=== PATIENT | female | born 1990 | race Caucasian/White ===

== ENCOUNTER 2021-01-26 14:44 | Outpatient (RCR) | payer BC, SELFPAY ==
[2021-01-24 11:34] LABS: Hematocrit 35.8 % (37.0-47.0); Hemoglobin 12.1 g/dL (12.0-15.0)
[2021-01-24 11:44] LABS: Glucose 1 Hour PP 50gm Dose 125 mg/dL
[2021-01-24 12:26] LABS: HIV 1/2 Ab P24 Ag Result Negative (Negative)
[2021-01-26 06:50] LABS: Rapid Plasma Reagin Non-Reactive (NonReactive)
[2021-01-26] MEDS: RHO(D) IMMUNE GLOBULIN 300 MCG/2 ML SYRINGE IM (17:11)
== END 2021-04-24 23:59 | disposition home or self-care (01) ==
LOC: ANHLAB 14:44
PROVIDERS: PCP Internal Medicine; Visit Provider Obstetrics & Gynecology
DX: Z11.4 Encounter for screening for human immunodeficiency virus [HIV] (principal); Z29.13 Encounter for prophylactic Rho(D) immune globulin; O36.0130 Maternal care for anti-D [Rh] antibodies, third trimester, not applicable or unspecified; Z3A.00 Weeks of gestation of pregnancy not specified
CPT/HCPCS: 36415; 82947; 85014; 85018; 85461; 86592; 86703; 90384; 96372; G0432; J2790

== ENCOUNTER 2021-04-11 14:18 | Outpatient (CLI) | payer BC, SELFPAY ==
[2021-04-11 15:01] VITALS: BP 127/83; PULSE 101
[2021-04-11 15:15] VITALS: BP 115/86; PULSE 106
[2021-04-11 15:18] LABS: Basophils Absolute Auto 0.1 K/mm3 (0.0-0.1); Basophils Percent Auto 0.4 % (0.2-1.2); Eosinophils Absolute Auto 0.1 K/mm3 (0-0.3); Eosinophils Percent Auto 0.7 % (0-4.4); Hematocrit 32.6 % (37.0-47.0); Immature Granulocyte Absolute 0.17 K/mm3 (0.00-0.031); Immature Granulocyte Percent A 0.9 % (0-0.5); Lymphocytes Absolute Auto 3.22 K/mm3 (0.9-3.2); Lymphocytes Percent Auto 16.7 % (18.3-44.2); Mean Corpuscular HGB Conc 33.7 g/dl (32-36); Mean Corpuscular Hemoglobin 32.5 pg (26-34); Mean Corpuscular Volume 96.4 fl (80-100); Monocytes Percent Auto 4.9 % (2.6-8.5); Neutrophils Absolute Auto 14.7 K/mm3 (1.3-6.7); Neutrophils Percent Auto 76.4 % (45.5-73.1); Platelet Count Result 427 k/mm3 (150-375); Red Blood Count 3.38 M/mm3 (4.2-5.4); Red Cell Distribution Width 13.2 % (11.5-14.5); White Blood Count 19.3 K/mm3 (4.5-10.0)
[2021-04-11 15:28] LABS: Creatinine Urine 40.9 mg/dL; Total Protein Urine Random 12 mg/dL; Ur Ttl Prot Creatinine Ratio 0.29 mg/mg (0-0.20)
[2021-04-11 15:30] VITALS: BP 119/82; PULSE 106
[2021-04-11 15:32] LABS: Add Urine Microscopic? YES; Appearance Urine Cloudy (Clear); Bacteria Urine Trace /hpf; Bilirubin Urine Negative (Negative); Blood Urine Negative (Negative); Color Urine Yellow (Yellow); Glucose Urine UA Negative (Negative); Ketones Urine Negative (Negative); Leukocyte Esterase Ur Negative LEU/UL (NEGATIVE); Nitrate Urine Negative (Negative); Protein Urine Negative (Negative); RBC Urine 0-2 /hpf (0-2); Specific Grav Ur 1.008 (1.001-1.035); Squamous Epithelial Cell Urine Few /hpf (Few); Urobilinogen Urine Negative mg/dL (<2.0); WBC Urine 0-3 /hpf (0-3)
[2021-04-11 15:34] LABS: Alanine Aminotransferase 16 U/L (4-35); Albumin Level 3.9 g/dL (3.5-5.1); Alkaline Phosphatase 136 U/L (38-126); Anion Gap 9 mmol/L (8-16); Aspartate Amino Transferase 22 U/L (14-36); Bilirubin,Total 0.3 mg/dL (0.2-1.3); Blood Urea Nitrogen 5 mg/dL (7-17); Calcium 9.3 mg/dL (8.4-10.2); Carbon Dioxide 20 mmol/L (22-30); Chloride 104 mmol/L (98-107); Estimated Glomerular Filt Rate > 60; Glucose 112 mg/dL (65-110); Potassium 3.8 mmol/L (3.4-5.0); Sodium 133 mmol/L (137-145); Uric Acid 4.2 mg/dL (2.5-7.5)
[2021-04-11 15:46] VITALS: BP 122/71; PULSE 105
--- NOTE | 2021-04-11 15:55 | PC.NURSE ---
Lizzeth Bagley CNM on unit. Lab results and BPs given. Tracing reviewed. October D/C home.
[2021-04-11 16:00] VITALS: BP 115/84; PULSE 112
== END 2021-04-11 16:04 | disposition home or self-care (01) ==
LOC: ANHOBOP 14:22 → ANHOBPP 14:25
PROVIDERS: PCP Internal Medicine; Visit Provider Advanced Practice Midwife
DX: O13.9 Gestational [pregnancy-induced] hypertension without significant proteinuria, unspecified trimester (principal); Z3A.00 Weeks of gestation of pregnancy not specified
CPT/HCPCS: 36415; 59025; 80053; 81001; 82570; 84156; 84550; 85025; 87086; 99199

== ENCOUNTER 2021-04-14 06:13 | Inpatient (IN) | payer BC, SELFPAY ==
[2021-04-14] VITALS (92 sets, daily range): BP systolic 97–152; BP diastolic 55–91; PULSE 40–129; RESP 16–18; TEMP 36.2–37.2; O2SAT 81–100; BMI 28.9
[2021-04-14 06:44] LABS: Basophils Absolute Auto 0.1 K/mm3 (0.0-0.1); Basophils Percent Auto 0.4 % (0.2-1.2); Eosinophils Absolute Auto 0.1 K/mm3 (0-0.3); Eosinophils Percent Auto 0.4 % (0-4.4); Hematocrit 33.4 % (37.0-47.0); Hemoglobin 11.3 g/dL (12.0-15.0); Immature Granulocyte Absolute 0.21 K/mm3 (0.00-0.031); Immature Granulocyte Percent A 0.8 % (0-0.5); Lymphocytes Absolute Auto 3.09 K/mm3 (0.9-3.2); Lymphocytes Percent Auto 12.4 % (18.3-44.2); Mean Corpuscular HGB Conc 33.8 g/dl (32-36); Mean Corpuscular Hemoglobin 32.1 pg (26-34); Mean Corpuscular Volume 94.9 fl (80-100); Mean Platelet Volume 9.8 fl (7.4-10.4); Monocytes Absolute Auto 1.1 K/mm3 (0.1-0.6); Monocytes Percent Auto 4.4 % (2.6-8.5); Neutrophils Absolute Auto 20.4 K/mm3 (1.3-6.7); Neutrophils Percent Auto 81.6 % (45.5-73.1); Platelet Count Result 467 k/mm3 (150-375); Red Blood Count 3.52 M/mm3 (4.2-5.4); Red Cell Distribution Width 13.4 % (11.5-14.5)
[2021-04-14] MEDS: LACTATED RINGERS 1,000 ML 125 ML IV CONT ×2 (06:45→07:20)
--- NOTE | 2021-04-14 06:51 | LDADM ---
This patient, Lana Gomez, was admitted to Labor/Delivery/Recovery 103 on 04/14/21 at 06:13. Plans for labor, pain management and were discussed with patient. Patient/family oriented to hospital policies and general routines including ID bracelet, bed and alarms, visiting hours, pain management, procedures, bathroom and other care routines, personal items, smoking policy, room service/diet and guest tray routines, security routines, and visiting hours. Patient/Family are encouraged to report perceived risks to care and to ask questions if they do not understand what they are told or what they should do. See OBIX for further documentation.
[2021-04-14] MEDS: fentaNYL CITRATE INJ (*CRX) 100 MCG/2 ML VIAL IV PUSH (07:21)
--- NOTE | 2021-04-14 07:41 | WPDANESEPP ---
Anes - Eval Pre Procedure Procedure: Labor Epidural Date/Time: 04/14/21 07:41 Surgeon: Bri Preop Diagnosis: Labor Pain Pre Op Diagnosis: Labor Patient Data Age: 31 Gender: F Height: 1.6 m Weight: 74 kg Last Vital Signs Pulse 99 04/14/21 07:41 BP 129/76 04/14/21 07:41 Pulse Ox 100 04/14/21 07:37 Allergies Allergy/AdvReac Type Severity Reaction Status Date / Time No Known Allergies Allergy Verified 03/21/21 13:34 Home Medications Medication Instructions Recorded Confirmed Type pantoprazole 40 mg PO QAM 03/21/21 03/21/21 History prenat.vits,tamiko,vqc-fmds-hhqyp 1 tablet PO DAILY 03/21/21 03/21/21 History [ #2] Laboratory Tests 04/14/21 04/14/21 04/14/21 06:37 06:37 06:38 WBC 25.0 K/mm3 H K/mm3 (4.5-10.0) RBC 3.52 M/mm3 L M/mm3 (4.2-5.4) Hgb 11.3 g/dL L g/dL (12.0-15.0) Hct 33.4 % L % (37.0-47.0) MCV 94.9 fl fl (80-100) MCH 32.1 pg pg (26-34) MCHC 33.8 g/dl g/dl (32-36) RDW 13.4 % % (11.5-14.5) Plt Count 467 k/mm3 H k/mm3 (150-375) MPV 9.8 fl fl (7.4-10.4) Immature Gran % (Auto) 0.8 % H % (0-0.5) Neut % (Auto) 81.6 % H % (45.5-73.1) Lymph % (Auto) 12.4 % L % (18.3-44.2) [place] % (Auto) 4.4 % % (2.6-8.5) Eos % (Auto) 0.4 % % (0-4.4) Baso % (Auto) 0.4 % % (0.2-1.2) Lymph # (Auto) 3.09 K/mm3 K/mm3 (0.9-3.2) [place] # (Auto) 1.1 K/mm3 H K/mm3 (0.1-0.6) Eos # (Auto) 0.1 K/mm3 K/mm3 (0-0.3) Baso # (Auto) 0.1 K/mm3 K/mm3 (0.0-0.1) Abs Immat Gran (auto) 0.21 K/mm3 H K/mm3 (0.00-0.031) Absolute Neuts (auto) 20.4 K/mm3 H K/mm3 (1.3-6.7) Absolute Nucleated RBC 0.0 K/mm3 K/mm3 (0.0-0.012) Nucleated RBC % 0.0 % % (0.0-0.2) RPR Pending Blood Type O Negative Antibody Screen Negative : gestational age (VAHID 04/18/21, ) Patient hx anesthesia problems: none Family hx anesthesia problems: none Results Review: All pre-operative results and documents have been reviewed as part of the pre-operative evaluation. [facility] Family History Family History Mother Legally blind ADHD (attention deficit hyperactivity disorder) Sibling ADHD (attention deficit hyperactivity disorder) Social History Social History Smoking status: Current every day smoker Tobacco type: e-cigarettes/vaping Substance use: current Last use: LAST TIME 1.5 MONTH AGO Spiritual care concerns: No Exam Day of Procedure 04/14/21 07:41 Patient weight: normal Heart: regular rate and rhythm Lungs: normal air movement Airway: Mallampati scale class II Neurological: alert and oriented
--- NOTE | 2021-04-14 08:26 | WPDOBADMIT ---
Obstetrics - Admit Note Admission Note: 31 y/o G1 @ 39w3d here with spontaneous rupture of membranes. VSS Comfortable with epidural Contractions regular FHR category 1 Cervix 6-7/100/-1 Anticipate record reviewed. No pertinent additions to the history and/or any subsequent changes in the physical findings that are not consistent with the expected course of the were found. Additions to the history and/or subsequent changes in the physical findings follow. None.
[2021-04-14 09:17] LABS: Amphetamine Screen Urine Negative (Negative); Barbiturate Screen Urine Negative (Negative); Benzodiazepines Screen Urine Negative (Negative); Cannabinoid Screen Urine Positive (Negative); Cocaine Screen Urine Negative (Negative); Methadone Screen Urine Negative (Negative); Opiate Screen Urine Negative (Negative); Phencyclidine Screen Urine Negative (Negative)
--- NOTE | 2021-04-14 12:20 | PM.OBPRVD ---
OB - Delivery Note Procedure Delivery date: 04/14/21 Procedure: Intrapartal events: None Induction method: none Delivery monitor: external FHT and external uterine Route of delivery: Episiotomy description: None Laceration Description: Periurethral and Perineal - 2nd Degree Delivery repair: vicryl Anesthesia type: Epidural Narrative: Mother and baby in stable condition. Cord segment handed off to staff for cord dahlia collection. Baby Date of : 04/14/21 Time of : 11:23 Weeks of gestation at delivery: 39 Infant gender: Female presentation: vertex position: Right Occiput Anterior cord vessel description: Delayed Cord Clamping
[2021-04-14] MEDS: LANOLIN (LANSINOH) 7.5 GM CREAM 1 APPLIC TOPICAL ×2 (14:28→18:55)
[2021-04-14] MEDS: WITCH HAZEL 40 PADS 1 PAD TOPICAL (14:28)
[2021-04-14] MEDS: BENZOCAINE 20% AER SPR (*SP) 56 GM CAN 1 SPRAY TOPICAL (14:28)
--- NOTE | 2021-04-14 15:00 | PC.NURSE ---
Mother called out for assist with feeding, reporting eagerly fed for first feeding without issue. Reviewed feeding cues, frequencies, duration of feedings, feeding elimination flow sheet, and signs of adequate intake. Demonstrated stimulation techniques to wake for feeding. Assisted with infant to breast. Reviewed positioning/alignment in cross cradle, holding breast in ?U? hold and guided asymmetrical latch on. Reviewed rational for each. able to latch correctly within a few attempts. Infant nursed eagerly with steady draws and occasional/frequent swallowing noted, some pausing noted. Reviewed signs of a correct latch, effective nursing and suck swallow ratio. Suggested mother stimulate while feeding to increase stimulate, increase intake and to assist with maintaining deep latch. would slip to shallow latch causing tenderness. Demonstrated how to adjust latch more deeply while feeding if needed. Mother reports she can feel the difference in latch with less tenderness. Nipple care reviewed of lanolin after feedings, warm compresses as needed. Instructed mother to call out for RN assistance if she is unable to latch for feeding or she has discomfort with nursing. Instructed feeding should be initiated three hours from start of last feeding or if feeding cues are noted before. Mother voiced understanding of information shared.
[2021-04-14] MEDS: IBUPROFEN 600 MG TABLET PO (18:53)
[2021-04-14] MEDS: DOCUSATE SODIUM 100 MG CAPSULE PO (18:53)
--- NOTE | 2021-04-14 18:55 | PC.NURSE ---
1408 Pt admitted to room 281 per wheelchair from labor and delivery after vaginal delivery of viable female today at 1123 with Salome GORDON for Dr. Gregory. Mother is a and is choosing to breast feed infant. /FOB present; couple oriented to room, staffing and procedures. Admission folder reviewed including Mother-Baby Guide. Pt's VSS and assessment WNL.
[2021-04-15 00:01] VITALS: BP 92/58; PULSE 94; RESP 16; TEMP 36.8; O2SAT 98
[2021-04-15 05:15] VITALS: BP 104/62; PULSE 78; RESP 14; TEMP 36.7; O2SAT 98
[2021-04-15] MEDS: IBUPROFEN 600 MG TABLET PO ×3 (05:19→17:07)
[2021-04-15 06:24] LABS: Hematocrit 26.4 % (37.0-47.0); Hemoglobin 8.8 g/dL (12.0-15.0)
[2021-04-15 07:15] VITALS: BP 111/66; PULSE 87; RESP 18; TEMP 36.4; O2SAT 98
--- NOTE | 2021-04-15 07:49 | PM.OBPNVD ---
OB - PN: Subj Subjective Date/time seen: 04/15/21 07:49 Patient comments: no complaints baby status: doing well [place] feeding status: exclusively breast feeding OB - PN: Obj Data Labs CBC & Chem 7: 04/15/21 05:23 Labs: Laboratory Results - last 24 hr 04/14/21 04/15/21 04/15/21 07:15 05:23 05:23 Hgb 8.8 L Hct 26.4 L Urine Opiates Screen Negative Urine Methadone Screen Negative Ur Barbiturates Screen Negative Ur Phencyclidine Scrn Negative Ur Amphetamine Screen Negative U Benzodiazepines Scrn Negative Urine Cocaine Screen Negative U Cannabinoids Screen Positive A Blood Type O Negative Antibody Screen Negative Baby's Blood Type O pos Baby's NITIN Negative Doses of RhIg Required 1 OB - PN A/P Plan day: 1 Plan: routine care Time Spent With Patient Time: Total time spent is greater than 50% in coordination of care (as documented) at patient's floor/unit and/or counseling patient: Review of Systems Review of Systems: All systems reviewed & are unremarkable except as noted in HPI and below Exam Const: General: cooperative Nutritional Appearance: average body habitus
[2021-04-15] MEDS: POLYSACCHARIDE IRON COMPLEX 150 MG CAPSULE PO ×2 (11:18→17:07)
[2021-04-15] MEDS: DOCUSATE SODIUM 100 MG CAPSULE PO ×2 (11:19→17:07)
--- NOTE | 2021-04-15 11:26 | PCCCNOTE ---
Addendum entered by MICHAEL Mota 04/15/21 13:13: 1310: Recvd email from [facility] that states: The information you provided did not meet one of the criteria for an investigation (eligible victim, eligible perpetrator, eligible event, or jurisdiction). The information as been documented and will be kept on file. Should you learn of further information or have additional concerns, please feel free to contact us. Original Note: Met with pt. due to THC+ UDS. Pt. reports using THC during to help her sleep. Baby's meconium is pending. GELA Seals reports likely discharge tomorrow. FOB Alen at bedside. Pt., Alen, and will be living at home in [place]. Pt. reports having a large support system and states has all necessary baby supplies for their first baby. Pt. states they are both employed and over qualified for WIC/Food [place]. Pt. denies prior DCFS involvement. resources provided. [facility] Report #[id number]. GELA Seals aware.
--- NOTE | 2021-04-15 12:30 | PC.NURSE ---
Upon entering mother has to breast. Mother reports tenderness with feeding and freq feeding. Infant has bottom lip rolled in while nursing, demonstrated how to roll out while feeding. Mother reports less tenderness once rolled out. Reviewed positioning/alignment in cross cradle, holding breast in ?U? hold and guided asymmetrical latch on. Reviewed rational for each. nursed eagerly with steady draws and occasional swallowing noted, some pausing noted. Reviewed signs of a correct latch, effective nursing and suck swallow ratio. Suggested mother stimulate while feeding to increase stimulate, increase intake and to assist with maintaining deep latch. Infant would slip to shallow latch causing tenderness. Demonstrated how to adjust latch more deeply while feeding if needed. Mother reports she can feel the difference in latch with less tenderness. Infant is able to freely thrust tongue past gum ridge and flange both lips, she keeps tongue rolled up to palate. Skin is intact on both nipples, redness noted and no bruising. Nipple care reviewed of lanolin after feedings, warm compresses as needed. Instructed mother to call out for RN assistance if she is unable to latch for feeding or she has discomfort with nursing. Instructed feeding should be initiated three hours from start of last feeding or if feeding cues are noted before. Mother voiced understanding of information shared.
--- NOTE | 2021-04-15 13:07 | WPDANLDPN2 ---
Anes-Prog Note L&D Date/Time: 04/15/21 13:07 Comfortable throughout: labor and delivery Neuraxial method: epidural Epidural/Spinal procedure site: clean & non-tender Neuro status: Neuro function grossly intact. Cardiovascular status: normal Respiratory status: normal Airway patency: baseline Mental status: baseline Post-Op hydration status: normal Vital Signs: Last Vital Signs Temp 36.4 C L 04/15/21 07:15 Pulse 87 04/15/21 07:15 Resp 18 04/15/21 07:15 BP 111/66 04/15/21 07:15 Pulse Ox 98 04/15/21 07:15 Pain score (VAS): 2 I/O: Intake & Output 04/14/21 04/15/21 04/15/21 23:59 07:59 15:59 Output Total 278 Balance -278 Post-procedural complaints: none Patient feedback: Patient satisfied with anesthetic care.
[2021-04-15] MEDS: RHO(D) IMMUNE GLOBULIN 300 MCG/2 ML SYRINGE IM (15:00)
[2021-04-15 20:00] VITALS: BP 114/75; PULSE 100; RESP 16; TEMP 36.9; O2SAT 100
[2021-04-16 07:15] VITALS: BP 112/77; PULSE 78; RESP 16; TEMP 36.5; O2SAT 98
[2021-04-16] MEDS: POLYSACCHARIDE IRON COMPLEX 150 MG CAPSULE PO (07:26)
[2021-04-16] MEDS: DOCUSATE SODIUM 100 MG CAPSULE PO (07:26)
[2021-04-16] MEDS: IBUPROFEN 600 MG TABLET PO (07:28)
--- NOTE | 2021-04-16 09:21 | PM.OBPNVD ---
OB - PN: Subj Subjective Date/time seen: 04/16/21 09:21 Patient comments: no complaints baby status: doing well OB - PN: Obj Data Labs CBC & Chem 7: 04/15/21 05:23 Labs: Laboratory Results - last 24 hr 04/15/21 05:23 Blood Type O Negative Antibody Screen Negative Screen Negative Baby's Blood Type O pos Baby's NITIN Negative Doses of RhIg Required 1 OB - PN A/P Plan day: 2 Plan: routine care and discharge home Time Spent With Patient Time: Total time spent is greater than 50% in coordination of care (as documented) at patient's floor/unit and/or counseling patient: Review of Systems Review of Systems: All systems reviewed & are unremarkable except as noted in HPI and below Exam Const: General: cooperative, healthy appearing and comfortable Nutritional Appearance: average body habitus Orientation/consciousness: patient oriented x3 Limitations: no limitations
--- NOTE | 2021-04-16 09:23 | PM.OBDSVD ---
DS: Admitting Diagnosis Discharge Date 04/16/21 Admitting Diagnosis IOL OB - DS: Summary OB Procedures : None OB Procedures Intrapartum: Spontaneous Vag Delivery OB Procedures: : None Time Spent with Patient Time attestation: Total time spent providing and/or coordinating discharge services: DS: Data Data Completed and Pending Pending studies at discharge: Pending at discharge 04/14/21 18:47 Surgical [PTH] Routine Labs on day of discharge: Labs from last 24 hours 04/15/21 05:23 Blood Type O Negative Antibody Screen Negative Screen Negative Baby's Blood Type O pos Baby's NITIN Negative Doses of RhIg Required 1 Discharge Plan Discharge Attending physician on discharge: Marzena Gregory Discharging Clinician: Beverly Bhatt Patient Disposition: Home, Self-Care Activity: pelvic rest Diet: regular Patient Instructions: Antibiotic Form, How to Stop Smoking (DC) Stand Alone Forms: General Discharge Information Follow-up/Referrals: Dejah Bagley CNM [Certified Nurse Programming Specialist] - 4 Weeks Discharge Medications: New polysaccharide iron complex 150 mg iron Capsule 150 mg PO BIDWM Qty: 60 RF: 0 Continued pantoprazole 40 mg Tablet,Delayed Release (Dr/Ec) 40 mg PO QAM RF: 0 #2 Tablet 1 tablet PO DAILY RF: 0 Date of admission: 04/14/21 06:13 Primary Care Provider: EamonLindsey Admitting Provider: Marzena Gregory Attending physician on admission: Marzena Gregory Condition: Stable
--- NOTE | 2021-04-16 10:46 | PC.NURSE ---
Patient viewed the discharge video Mother & Baby Care, The First Two Weeks . Patient was given the opportunity and encouraged to ask questions. Patient verbalized understanding of information shared and has been given the mother/baby guide for home reference.
[2021-04-16 15:37] LABS: Rapid Plasma Reagin Non-Reactive (NonReactive)
[2021-04-18 09:54] VITALS: BP 115/74; PULSE 85; RESP 16; TEMP 36.7; O2SAT 100
== END 2021-04-16 11:44 | disposition home or self-care (01) | DRG 807 ==
LOC: ANHLDR 06:29 → ANHOB2 14:16
PROVIDERS: Advanced Practice Midwife; Admitting Provider Obstetrics & Gynecology; PCP Internal Medicine; Visit Provider Obstetrics & Gynecology
DX: O99.52 Diseases of the respiratory system complicating childbirth (principal); Z37.0 Single live birth; Z3A.39 39 weeks gestation of pregnancy; O70.1 Second degree perineal laceration during delivery; O71.82 Other specified trauma to perineum and vulva; J45.909 Unspecified asthma, uncomplicated
CPT/HCPCS: 36415; 59025; 80053; 80307; 81001; 82570; 84112; 84156; 84550; 85014; 85018; 85025; 85461; 86592; 86850; 86900; 86901; 87086; 88307; 90384; 99199; A9270; J2790; J2795; J3010; J7120

== ENCOUNTER 2024-01-31 09:31 | Outpatient (RCR) | payer BC, SELFPAY ==
[2024-01-31 11:00] LABS: Hemoglobin 11.5 g/dL (12.0-15.0)
[2024-01-31 11:15] LABS: Glucose 1 Hour PP 50gm Dose 162 mg/dL
[2024-01-31 11:56] LABS: HIV 1/2 Ab P24 Ag Result Negative (Negative)
[2024-01-31] MEDS: RHO(D) IMMUNE GLOBULIN 300 MCG/2 ML SYRINGE IM (14:10)
== END 2024-04-30 23:59 | disposition home or self-care (01) ==
LOC: ANHLAB 09:31
PROVIDERS: PCP Internal Medicine; Visit Provider Obstetrics & Gynecology
DX: Z11.4 Encounter for screening for human immunodeficiency virus [HIV] (principal); Z11.3 Encounter for screening for infections with a predominantly sexual mode of transmission; Z29.13 Encounter for prophylactic Rho(D) immune globulin; O36.0130 Maternal care for anti-D [Rh] antibodies, third trimester, not applicable or unspecified; Z3A.00 Weeks of gestation of pregnancy not specified
CPT/HCPCS: 36415; 82947; 85014; 85018; 85461; 86703; 86850; 86900; 86901; 90384; 96372; G0432; J2790

== ENCOUNTER 2024-04-07 04:36 | Inpatient (IN) | payer BC, SELFPAY ==
[2024-04-07] VITALS (131 sets, daily range): BP systolic 98–154; BP diastolic 51–109; PULSE 72–130; RESP 16–17; TEMP 36.2–37.2; O2SAT 97–100; BMI 30.4
[2024-04-07] MEDS: LACTATED RINGERS 1,000 ML 125 ML IV CONT (05:35)
[2024-04-07] MEDS: AMPICILLIN 2 GM/NS 100 ML 2 GM/100 ML BAG IVPB (05:35)
[2024-04-07 05:53] LABS: Hematocrit 31.5 % (37.0-47.0); Hemoglobin 10.8 g/dL (12.0-15.0); Mean Corpuscular HGB Conc 34.3 g/dl (32-36); Mean Corpuscular Hemoglobin 32.6 pg (26-34); Mean Corpuscular Volume 95.2 fl (80-100); Mean Platelet Volume 10.7 fl (7.4-10.4); Platelet Count Result 389 k/mm3 (150-375); Red Blood Count 3.31 M/mm3 (4.2-5.4); Red Cell Distribution Width 13.4 % (11.5-14.5); White Blood Count 22.4 K/mm3 (4.5-10.0)
[2024-04-07] MEDS: fentaNYL CITRATE INJ (*CRX) 100 MCG/2 ML VIAL 50 MCG IV PUSH (05:55)
--- NOTE | 2024-04-07 05:57 | LDADM ---
This patient, Lana Gomez, was admitted to Labor/Delivery/Recovery 104 on 04/07/24 at 04:36. Plans for labor, pain management and were discussed with patient. Patient/family oriented to hospital policies and general routines including ID bracelet, bed and alarms, visiting hours, pain management, procedures, bathroom and other care routines, personal items, smoking policy, room service/diet and guest tray routines, security routines, and visiting hours. Patient/Family are encouraged to report perceived risks to care and to ask questions if they do not understand what they are told or what they should do. See OBIX for further documentation.
[2024-04-07 06:21] LABS: Band Neutrophils Percent 9 % (0-6); Basophils Absolute Manual 0.22 K/mm3 (0.0-0.1); Basophils Percent Manual 1 % (0-1); Eosinophils Absolute Manual 0.22 K/mm3 (0.02-0.50); Eosinophils Percent Manual 1 % (0-4); Lymphocytes Absolute Manual 2.68 K/mm3 (1.1-4.5); Lymphocytes Percent Manual 12 % (18-44); Monocytes Absolute Manual 0.22 K/mm3 (0.1-0.90); Monocytes Percent Manual 1 % (3-9); Neutrophils Absolute Manual 19.04 K/mm3 (1.7-7.2); Neutrophils Percent Manual 76 % (46-73); Total Cells Counted 100
[2024-04-07 06:22] LABS: Platelet Estimate Increased (Adequate); Schistocytes None Seen
[2024-04-07 06:41] LABS: HIV 1/2 Ab P24 Ag Result Negative (Negative)
[2024-04-07] MEDS: LACTATED RINGERS 1,000 ML 999 ML IV CONT ×2 (06:42→11:34)
--- NOTE | 2024-04-07 06:45 | WPDANESEPP ---
Anes - Eval Pre Procedure Procedure: labor epidural Date/Time: 04/07/24 06:45 Surgeon: lan Preop Diagnosis: pain during labor Pre Op Diagnosis: SROM Patient Data Age: 34 Gender: F Height: 1.6 m Weight: 78 kg Last Vital Signs Temp 36.5 C 04/07/24 06:00 Pulse 78 04/07/24 06:31 BP 141/82 H 04/07/24 06:31 Pulse Ox 99 04/07/24 06:41 Allergies Allergy/AdvReac Type Severity Reaction Status Date / Time No Known Allergies Allergy Verified 03/31/24 15:28 Home Medications Medication Instructions Recorded Confirmed Type pantoprazole 40 mg tablet,delayed 40 mg PO QAM 03/21/21 04/07/24 History release prenat.vits,tamiko,mdf-ifuz-nqyap 1 tablet PO DAILY 03/21/21 03/31/24 History famotidine 20 mg tablet 20 mg PO DAILY 03/31/24 04/07/24 History Laboratory Tests 04/07/24 05:39 WBC 22.4 H K/mm3 (4.5-10.0) RBC 3.31 L M/mm3 (4.2-5.4) Hgb 10.8 L g/dL (12.0-15.0) Hct 31.5 L % (37.0-47.0) MCV 95.2 fl (80-100) MCH 32.6 pg (26-34) MCHC 34.3 g/dl (32-36) RDW 13.4 % (11.5-14.5) Plt Count 389 H k/mm3 (150-375) MPV 10.7 H fl (7.4-10.4) Immature Gran % (Auto) Not Reportable Neut % (Auto) Not Reportable Lymph % (Auto) Not Reportable [place] % (Auto) Not Reportable Eos % (Auto) Not Reportable Baso % (Auto) Not Reportable Lymph # (Auto) Not Reportable [place] # (Auto) Not Reportable Eos # (Auto) Not Reportable Baso # (Auto) Not Reportable Abs Immat Gran (auto) Not Reportable Absolute Neuts (auto) Not Reportable Absolute Nucleated RBC Not Reportable Total Counted 100 Neutrophils % (Manual) 76 H % (46-73) Band Neutrophils % 9 H % (0-6) Lymphocytes % (Manual) 12 L % (18-44) Monocytes % (Manual) 1 L % (3-9) Eosinophils % (Manual) 1 % (0-4) Basophils % (Manual) 1 % (0-1) Nucleated RBC % Not Reportable Abs Neuts (Manual) 19.04 H K/mm3 (1.7-7.2) Abs Lymphs (Manual) 2.68 K/mm3 (1.1-4.5) Abs Monocytes (Manual) 0.22 K/mm3 (0.1-0.90) Absolute Eos (Manual) 0.22 K/mm3 (0.02-0.50) Abs Basophils (Manual) 0.22 H K/mm3 (0.0-0.1) Platelet Estimate Increased (Adequate) Schistocytes None seen RPR Pending HIV 1&2 Ab/P24 Ag 4thGn Negative (Negative) Blood Type O Negative Antibody Screen Pending Patient hx anesthesia problems: none Family hx anesthesia problems: none Results Review: All pre-operative results and documents have been reviewed as part of the pre-operative evaluation. COUNT INCLUDES THE [facility] Past Medical History Medical History (Updated 04/07/24 @ 06:46 by Miguelina Rust CRNA) Asthma IUP (intrauterine ), incidental Obesity (BMI 30-39.9) Family History Family History Mother Legally blind ADHD (attention deficit hyperactivity disorder) Sibling ADHD (attention deficit hyperactivity disorder) Social History Social History Smoking status: Current every day smoker Tobacco type: e-cigarettes/vaping Second hand tobacco smoke exposure: No Substance use: never Last use: LAST TIME 1.5 MONTH AGO Do You Feel Safe in your Home?: Yes Lack of Transportation: No Lack of Food: Never True Current Housing: I Have Housing Concerned About Future Housing: No Difficulty Paying Gas/Electric Bills: No Difficulty Paying for Meds: No Currently Unemployed: No Education: Trade/Vocational Certificate Difficulty w/ Childcare or Family Care: No Spiritual care concerns: No Exam Day of Procedure 04/07/24 06:45
[2024-04-07 06:56] LABS: Rapid Plasma Reagin Non-Reactive (NonReactive)
[2024-04-07] MEDS: OXYTOCIN 30 UNITS/NS 500 ML 30 UNITS/500 ML BAG IV CONT (08:21)
[2024-04-07] MEDS: AMPICILLIN 1 GM/NS 50 ML 1 GM/50 ML BAG IVPB (09:25)
--- NOTE | 2024-04-07 09:32 | WPDOBADMIT ---
Obstetrics - Admit Note Admission Note: record reviewed. No pertinent additions to the history and/or any subsequent changes in the physical findings that are not consistent with the expected course of the were found. Patient admitted for SROM of clear fluid this morning. SVE per RN. Patient comfortable with epidural. Pitocin per protocol. FHR category I Additions to the history and/or subsequent changes in the physical findings follow. None.
--- NOTE | 2024-04-07 12:44 | PM.OBPRVD ---
OB - Vaginal Delivery Note Procedure Delivery date: 04/07/24 Events: Premature Rupture of Membranes and Other (suspected LGA fetus) Delivery augmentation: Pitocin Delivery monitor: External FHT and External Uterine Route of delivery: Episiotomy description: None Laceration Description: Perineal - 2nd Degree Delivery repair: vicryl Specimen: No Quantitative Blood Loss (ml): 200 Anesthesia type: Epidural Disposition: Floor Complications: No immediate complications Narrative: See H&P and notes for details on patient's admission and labor. She progressed to complete cervical dilation and at the appropriate time began pushing. With adequate expulsive efforts by the mother, the baby's head was delivered without difficulty. Nuchal cord was not present. The baby's right shoulder was anterior and delivered under the pubic symphysis without difficulty. The posterior shoulder and the rest of the baby delivered without difficulty. The umbilical cord was doubly clamped and cut after 60 seconds of delayed cord clamping. Care of the infant was then assumed by the nursing staff. Baby Date of : 04/07/24 Time of : 12:23 Gestational Age by Date: 36 gender: Female Weight (pounds): 8 Weight (ounces): 9 presentation: vertex position: Left Occiput Anterior Placenta delivery description: Spontaneous Cord Vessel Description: 3 Vessels and Other (umbilical cord varix)
[2024-04-07] MEDS: OXYTOCIN 30 UNITS/NS 500 ML 30 UNITS/500 ML BAG 125 UNITS IV CONT (12:58)
[2024-04-07] MEDS: IBUPROFEN 600 MG TABLET PO (16:30)
[2024-04-07] MEDS: DOCUSATE SODIUM 100 MG CAPSULE PO (16:30)
--- NOTE | 2024-04-07 17:52 | OBPPTRN ---
Patient transferred to post room #291 via (ambulating). Support person present. Oriented to unit, room, information board, rooming in, admission packet and security measures. Patient verbalizes understanding.
[2024-04-07] MEDS: ACETAMINOPHEN 325 MG TABLET 650 MG PO (19:34)
[2024-04-08] MEDS: ACETAMINOPHEN 325 MG TABLET 650 MG PO (04:53)
[2024-04-08 05:11] LABS: Hematocrit 27.9 % (37.0-47.0); Hemoglobin 9.5 g/dL (12.0-15.0)
[2024-04-08 05:21] VITALS: BP 108/72; PULSE 84; RESP 16; TEMP 37
[2024-04-08 07:55] VITALS: BP 123/74; PULSE 82; RESP 16; TEMP 36.7; O2SAT 100
[2024-04-08] MEDS: POLYSACCHARIDE IRON COMPLEX 150 MG CAPSULE PO (09:33)
[2024-04-08] MEDS: RHO(D) IMMUNE GLOBULIN 300 MCG/2 ML SYRINGE IM (09:53)
--- NOTE | 2024-04-08 10:44 | PM.OBPNVD ---
OB - PN: Subj Subjective Date/time seen: 04/08/24 10:44 Interval history: PPD#1 Doing well, patient in bathroom when visited, discussed with Formula feeding Tolerating general diet OB - PN: Obj Data Labs 04/08/24 04:58 Labs: Laboratory Results - last 24 hr 04/08/24 04:58 Hgb 9.5 L Hct 27.9 L Blood Type O Negative Antibody Screen TNP Screen Negative Baby's Blood Type O pos Baby's NITIN Negative Doses of RhIg Required 1 OB - PN A/P Assessment and Plan (1) (spontaneous vaginal delivery): Code(s): O80 - Encounter for full-term uncomplicated delivery Status: Acute Plan day: 1 Plan: routine care Time Spent With Patient Time: Total time spent is greater than 50% in coordination of care (as documented) at patient's floor/unit and/or counseling patient: Review of Systems Review of Systems: All systems reviewed & are unremarkable except as noted in HPI and below
[2024-04-08 12:43] VITALS: BP 121/75; PULSE 87; RESP 16; TEMP 36.5; O2SAT 100
[2024-04-09 08:28] VITALS: BP 114/79; PULSE 81; RESP 18; TEMP 36.9; O2SAT 100
--- NOTE | 2024-04-12 09:19 | P.DS_ITS ---
DS: Admitting Diagnosis Discharge Date 04/08/24 Admitting Diagnosis labor DS: Discharge Diagnosis Discharge Diagnosis (1) (spontaneous vaginal delivery): Code(s): O80 - Encounter for full-term uncomplicated delivery Status: Acute OB - DS: Summary OB Procedures : None OB Procedures Intrapartum: Spontaneous Vag Delivery OB Procedures: : None Peripartum Data Laceration Description: Perineal - 2nd Degree Episiotomy description: None Time Spent with Patient Time attestation: Total time spent providing and/or coordinating discharge services: DS: Data Data Completed and Pending Completed studies during hospitalization: Pending at discharge 04/07/24 12:29 Surgical [PTH] Routine Discharge Plan Discharge Consulting providers: Miguelina Rust Discharging Clinician: Silas Toscano Patient Disposition: Home, Self-Care Activity: other - see discharge instructions Diet: regular Discharge Instructions: Education: Mom and Baby Guide Given to: Mother Follow-Up: Call your delivering provider's office for an appointment to be seen in: 4-6 Weeks Mom and baby should come to the [facility] for the follow-up appointment. Appointment Date/Time: April 09, 2024 at 8:00 am What to expect at your follow-up visit: Blood Pressure Check Physical Assessment Call [phone] if you are unable to keep your appointment time. BREAST CARE: * Wear a snug supportive bra. * For engorgement discomfort: Bottle Feeding: * May apply ice packs PERINEAL CARE: * Until bleeding stops, use your deirdre bottle after urinating * Change your pad frequently throughout the day * You may take sitz baths several times a day (fill your bathtub with warm water and soak for 20 minutes.) Do NOT bathe in the water * No tub baths until seen by your physician - You may shower ACTIVITY: * Rest as much as possible. * Do not exercise or lift anything heavier than your baby (such as laundry or ot her children.) * Avoid stairs or driving as much as possible. * Do not put anything into the vagina. No douching, tampons, or sexual activity until seen by physician. NOTIFY PHYSICIAN IF YOU HAVE ANY QUESTIONS OR IF ANY OF THE FOLLOWING SYMPTOMS OCCUR: * If your vaginal bleeding becomes foul smelling. * If your vaginal bleeding becomes more heavy than a period or if your bleeding changes from pink to bright red. However, you may pass an occasional [place]- sized clot once or twice for the first week . * If you experience a sharp, shooting pain in your calves. * If you discover a hard, reddened area on your breast or if you experience flu- like symptoms. DIET: * Eat regular, well-balanced meals. * Drink plenty of fluids daily. Stand Alone Forms: General Discharge Information Follow-up/Referrals: Silas Toscano MD [Physician] - Discharge Medications: Continued pantoprazole 40 mg Tablet,Delayed Release (Dr/Ec) 40 mg PO QAM prenat.vits,tamiko,[id number]-njelb Tablet 1 tablet PO DAILY famotidine 20 mg Tablet 20 mg PO DAILY Date of admission: 04/07/24 04:36 Primary Care Provider: Lindsey Knutson Admitting Provider: Bird Gregory Attending physician on admission: Silas Toscano Condition: Stable
== END 2024-04-08 16:25 | disposition home or self-care (01) | DRG 807 ==
LOC: ANHLDR 12:32 → ANHOB2 15:56
PROVIDERS: Admitting Provider Obstetrics & Gynecology; PCP Internal Medicine; Visit Provider Obstetrics & Gynecology
DX: O60.14X0 Preterm labor third trimester with preterm delivery third trimester, not applicable or unspecified (principal); Z37.0 Single live birth; Z3A.36 36 weeks gestation of pregnancy; O70.1 Second degree perineal laceration during delivery; O36.63X0 Maternal care for excessive fetal growth, third trimester, not applicable or unspecified
CPT/HCPCS: 36415; 85014; 85018; 85025; 85461; 86592; 86703; 86850; 86880; 86900; 86901; 86902; 88307; 90384; A9270; G0432; J0290; J2590; J2790; J2795; J3010; J7120

== ENCOUNTER 2024-05-19 00:14 | Day surgery (SDC) | payer BC, SELFPAY ==
[2024-05-08 13:35] VITALS: BMI 27.3
--- NOTE | 2024-05-08 13:40 | PC.NURSE ---
Report to the Outpatient Waiting Room, entrance under the green pavilion located off [facility], at time _0815_ on date _[id number]_. Planned Procedure Time: _1015_.? Time changes happen often and if your time is changed the preop area will call you the afternoon before. - You and your visitor will be asked to self-screen and do not enter if you have any COVID symptoms. Please call surgeon if you need to reschedule. - A mask is optional within the hospital at this time. Patients may have clear liquids (water, carbonated beverages, clear teas, apple juice) until 3 hours prior to surgery with a maximum of 20 ounces. - No food from midnight until time of surgery and no smoking. This includes no chewing gum, candy or mints. Take only the following medications with a SIP of water on the morning of surgery: __None____ DO NOT STOP ANY OF YOUR OTHER PRESCRIPTION MEDICATIONS PRIOR TO SURGERY EXCEPT THE FOLLOWING Medications to discontinue per physician ____None Please no make-up, nail armenian, hairspray, perfume, deodorant, or body powder the day of surgery.? No jewelry (including any body piercings) or valuables the day of surgery, leave them at home.? Please take a shower or bath the night before, or the morning of, surgery with an antibacterial soap.? Wear comfortable, loose fitting clothing.? . - Jewelry must be removed prior to entering the operating room.? Rings and piercings that are not removed may be cut off. - The hospital will not accept responsibility for valuables.? - Please leave all valuables, including medications, at home the day of surgery. If you are going home after surgery, a licensed taxi driver supervisor must drive you home.? - NO public transportation without another adult if you receive anesthesia. - We recommend that an adult stay with you for 24 hours following discharge. - We also recommend that you do not drive, make important decision, drink alcoholic beverages, or take any drugs that were not prescribed by your health care provider for at least 24 hours after your discharge time. Follow any additional instructions given to you from your surgeon. Telephone instructions given to _Lana__and asked if any additional questions and then verbalized understanding. Patient advised to call surgeon office or pre surgery nurse liaison [phone] if any additional questions.
[2024-05-19] VITALS (7 sets, daily range): BP systolic 114–151; BP diastolic 74–86; PULSE 61–118; RESP 14–20; TEMP 36.2–36.3; O2SAT 98–100
--- NOTE | 2024-05-19 07:26 | PM.IMHP ---
H&P: HPI History of Present Illness Date/Time: 05/19/24 07:26 Chief Complaint: desires sterilization Narrative: Patient is a 34 year old female who presents for laparoscopic bilateral salpingectomy. She does not desire future childbearing and after discussion of alternatives, she desires to proceed with permanent surgical sterilization. She denies nausea, vomiting, diarrhea, or abdominal pain. Review of Systems Review of Systems: All systems reviewed & are unremarkable except as noted in HPI and below PMFSH Past Medical History Medical History Asthma IUP (intrauterine ), incidental Obesity (BMI 30-39.9) Family History Family History Mother Legally blind ADHD (attention deficit hyperactivity disorder) Sibling ADHD (attention deficit hyperactivity disorder) Social History Social History Smoking packs per day: 1 Smoking cigarettes per day: 20.0 Years smoked: 15 Smoking pack-years: 15.00 Smoking status: Current every day smoker Tobacco type: cigarettes Second hand tobacco smoke exposure: No Alcohol intake: current Drinks per week: 4 Substance use: current Substance use type: marijuana Other substance usage details: Nightly for insominia Last use: LAST TIME 1.5 MONTH AGO Do You Feel Safe in your Home?: Yes Lack of Transportation: No Lack of Food: Never True Current Housing: I Have Housing Concerned About Future Housing: No Difficulty Paying Gas/Electric Bills: No Difficulty Paying for Meds: No Currently Unemployed: No Education: Trade/Vocational Certificate Difficulty w/ Childcare or Family Care: No Living arrangements: with family Spiritual care concerns: No Meds Home Medications and Allergies Home Medications Medication Instructions Recorded Confirmed Type No Home Medications 05/08/24 05/08/24 History Allergies Allergy/AdvReac Type Severity Reaction Status Date / Time No Known Allergies Allergy Verified 05/08/24 13:34 Exam Const: General: comfortable and no acute distress HENMT: Mouth: Yes moist mucous membranes Resp: Effort & Inspection: normal respiratory effort Cardio: Rate: regular rate Skin: General skin exam: normal color Extrem: General: normal to inspection Psych: Mental Status: mental status grossly normal Assessment and Plan Assessment and plan (1) Encounter for sterilization: Code(s): Z30.2 - Encounter for sterilization Status: Acute Assessment and Plan: - patient does not desire future childbearing - risks, benefits, and alternatives discussed with patient who desires to proceed with laparoscopic bilateral salpingectomy - will proceed as planned
--- NOTE | 2024-05-19 09:08 | WPDHPUPDATE1 ---
History and Physical Update Update Date/Time: 05/19/24 09:08 History and Physical has been reviewed, including an updated exam of the patient. There are NO changes in the patient's condition. Risks, benefits, and alternatives have been discussed and questions answered. Patient agrees to proceed with procedure.
--- NOTE | 2024-05-19 09:11 | WPDANESEPPF ---
Anes - Initial Pre Proc Eval Procedure: Operation Date: 05/19/24 11:15 Proposed Procedures p Laparoscopic Bilateral Salpingectomy - Silas Toscano MD Date/Time: 05/19/24 09:11 Surgeon: Silas Toscano MD Pre Op Diagnosis: Desires Sterilization Patient Data Age: 34 Gender: F Height: 1.6 m Weight: 70 kg Allergies Allergy/AdvReac Type Severity Reaction Status Date / Time No Known Allergies Allergy Verified 05/08/24 13:34 Home Medications Medication Instructions Recorded Confirmed Type No Home Medications 05/08/24 05/08/24 History Patient hx anesthesia problems: post op nausea/vomiting Family hx anesthesia problems: none Results Review: All pre-operative results and documents have been reviewed as part of the pre-operative evaluation. [facility] Past Medical History Medical History (Updated 05/19/24 @ 08:16 by Ramos Paz DO) Asthma IUP (intrauterine ), incidental Family History Family History Mother Legally blind ADHD (attention deficit hyperactivity disorder) Sibling ADHD (attention deficit hyperactivity disorder) Social History Social History (Updated 05/19/24 @ 09:11 by Ramos Paz DO) Smoking packs per day: 1 Smoking cigarettes per day: 20.0 Years smoked: 15 Smoking pack-years: 15.00 Smoking status: Current every day smoker Tobacco type: cigarettes Second hand tobacco smoke exposure: No Alcohol intake: current Drinks per week: 7 Alcohol use details: 1 drink/day Substance use: current Substance use type: marijuana Other substance usage details: Nightly for insominia Last use: LAST TIME 1.5 MONTH AGO Do You Feel Safe in your Home?: Yes Lack of Transportation: No Lack of Food: Never True Current Housing: I Have Housing Concerned About Future Housing: No Difficulty Paying Gas/Electric Bills: No Difficulty Paying for Meds: No Currently Unemployed: No Education: Trade/Vocational Certificate Difficulty w/ Childcare or Family Care: No Living arrangements: with family Spiritual care concerns: No Anes - Eval Final PreProcedure Day of Procedure 05/19/24 09:11 Patient weight: overweight Heart: regular rate and rhythm Lungs: clear to auscultation Airway: Mallampati scale class II Neurological: alert and oriented Last oral intake: >/= 8 hours ASA classification: III Emergent: no Anesthetic plan: proceed Anesthesia type and monitoring: general ETT and standard monitoring Results Review: All pre-operative results and documents have been reviewed as part of the pre-operative evaluation. Informed Consent: The patient's anesthetic plan and its attendant risks and benefits were discussed with the patient/family/POA. Questions were solicited and answers provided to the satisfaction of the patient/family/POA.
[2024-05-19] MEDS: KETOROLAC 15 MG/ML VIAL (*BKC) IV PUSH (09:20)
[2024-05-19] MEDS: SCOPOLAMINE 1 MG PATCH 1 PATCH TRANSDERM (09:20)
[2024-05-19] MEDS: LACTATED RINGERS 1,000 ML 30 ML IV CONT (09:20)
[2024-05-19] MEDS: ACETAMINOPHEN 500 MG TABLET 1000 MG PO (09:20)
[2024-05-19] MEDS: LIDO 1%/EPINEPHRINE 1:100,000 20 ML VIAL 10 ML INFILTRATE (09:53)
--- NOTE | 2024-05-19 10:28 | W.PM.PROC2 ---
Procedure Note - Detailed Date of Procedure 05/19/24 Pre-op Diagnosis Desires Sterilization Post-op Diagnosis Same Procedure Performed laparoscopic bilateral salpingectomy Surgeon Silas Toscano MD Anesthesia General Indications desires permanent sterilization Findings normal appearing uterus, bilateral tubes and bilateral ovaries Description of Procedure With IV fluids infusing, the patient was taken to the operating room. The patient was placed in supine position. General anesthesia with endotracheal intubation was given. A time-out took place. The patient was placed in dorsal lithotomy position using Maurice stirrups and she was prepped and draped in the usual sterile fashion. The bladder was drained using a red rubber catheter. A sterile speculum was placed vaginally, the anterior lip of the cervix was grasped with a single-tooth tenaculum and the acorn uterine manipulator was placed without difficulty. The speculum was removed. The surgeon's gloves were changed and attention was turned to the abdomen. A 5 mm incision was made in the umbilicus. Under direct visualization with the scope, the umbilical port was inserted without difficulty. Another two trocars were placed under direct visualization in the left upper and left lower quadrants. The patient was placed in Trendelenburg and inspection of the pelvis noted the above findings. Appropriate pictures were taken. Using the LigaSure device, a left salpingectomy was performed in the usual fashion. Care was taken to avoid the IP ligament. The salpingectomy went smoothly. The same procedure was repeated on the right side. The instruments were all removed from the abdomen and the CO2 gas was allowed to escape. The three skin incisions were reapproximated with 4-0 Polysorb in a subcuticular manner, followed by skin glue. The acorn manipulator and single tooth tenaculum was removed from the uterus and cervix, respectively. The tenaculum sites were hemostatic. All instruments were removed from the vagina. At the end of the case, instrument, sponge and needle counts were correct x 2. The patient was awakened from general anesthesia and was taken to PACU in stable condition. Estimated Blood Loss 5 Pathology Yes Complications No immediate complications Condition Stable Disposition Same day
[2024-05-19 17:03] LABS: BEDSIDEPREGUCG Negative (Negative)
== END 2024-05-19 12:09 | disposition home or self-care (01) ==
PROVIDERS: PCP Internal Medicine; Visit Provider Obstetrics & Gynecology
PROC: (CPT 49320; principal; 2024-05-19 11:15)
DX: Z30.2 Encounter for sterilization (principal); N83.8 Other noninflammatory disorders of ovary, fallopian tube and broad ligament; F17.210 Nicotine dependence, cigarettes, uncomplicated; F12.90 Cannabis use, unspecified, uncomplicated
CPT/HCPCS: 58661; 88302; A9270; J1100; J1885; J2003; J2004; J2250; J2405; J2704; J3010; J7030; J7120